=== PATIENT | female | born 1945 ===

== ENCOUNTER 2024-11-06 07:07 | Emergency (ER) | payer MEDICARE, SELFPAY ==
[2024-11-06 07:14] VITALS: BP 146/75; BMI 32.8
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
--- NOTE | 2024-11-06 10:41 | EDRN ---
pharmacy will verify the pts home medications
[2024-11-06 12:13] LABS: Hematocrit 39.7 % (37.0-47.0); Hemoglobin 13.4 g/dL (12.0-16.0); Mean Corp Hgb Conc. 33.8 g/dL (33.0-37.0); Mean Corpuscular Volume 87.4 fL (81.0-99.0); Nucleated Red Blood Cells % 0 %; Platelet Count 423 10^3/uL (130-400); Red Cell Dist. Width 14.7 % (11.5-14.5)
[2024-11-06 12:48] LABS: ALT (SGPT) 24 U/L (0-35); AST (SGOT) 36 U/L (14-36); Albumin 5.3 g/dl (3.5-5.0); Alkaline Phosphatase 106 U/L (38-126); Blood Urea Nitrogen 21 mg/dl (7-17); Calcium 9.7 mg/dl (8.4-10.2); Carbon Dioxide 21 mmol/L (22-30); Chloride 102 mmol/L (98-107); Estimated Creatinine Clearance 64 ml/min; Glucose 143 mg/dl (70-99); Potassium 4.1 mmol/L (3.5-5.1); Sodium 136 mmol/L (135-145); Total Protein 7.9 g/dl (6.3-8.2); eGFR > 60.00
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
[2024-11-06 17:19] LABS: COVID-19 Antigen Negative (Negative)
[2024-11-06 18:36] LABS: Folate 5.9 ng/ml (2.76-20); Vitamin B12 408 pg/ml (239-931)
[2024-11-06 19:58] VITALS: BP 152/80
[2024-11-06] MEDS: DESYREL 50 MG PO (22:35)
[2024-11-07 00:43] VITALS: BP 160/78
[2024-11-07 05:50] VITALS: BP 162/90
[2024-11-07 08:06] LABS: Urine Character Clear (Clear)
[2024-11-07 08:20] LABS: Urine Squamous Cell 16-20 /LPF (Few)
[2024-11-07 08:21] LABS: Urine Red Blood Cell 0-2 /HPF (0-2)
[2024-11-07 09:00] VITALS: BP 159/84
[2024-11-07 10:57] VITALS: BMI 33.5
[2024-11-07 11:00] VITALS: BP 155/74
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
== END 2024-11-07 11:58 ==
LOC: EMR 07:07
PROVIDERS: Emergency Medicine; Psychiatry & Neurology Psychiatry; EMERGENCY PHYSICIAN Student in an Organized Health Care Education/Training Program
DX: R45.6 Violent behavior (principal); F03.90 Unspecified dementia, unspecified severity, without behavioral disturbance, psychotic disturbance, mood disturbance, and anxiety; Z65.3 Problems related to other legal circumstances
CPT/HCPCS: 99284; 70450; 71046; 80053; 80306; 80307; 81003; 81015; 82607; 82746; 84443; 85025; 87811; 93005